=== PATIENT | female | born 1960 | race Caucasian/White ===

== ENCOUNTER 2017-09-08 19:50 | Inpatient (IN) | payer MEDICARE, BC, MEDICAID ==
[~2017-09-08] VITALS: Ht 162.6 cm; Wt 52.5 kg
[~2017-09-08 19:50] MED LIST: DIVA500T52 PO; LURA40 PO
[2017-09-08 20:14] LABS: BASOPHILS % (AUTO) 1.1 % (0.0-2.0); EOSINOPHILS % (AUTO) 1.6 % (1.0-6.0); HEMATOCRIT 36.6 % (36-46); HEMOGLOBIN 12.9 g/dL (12.0-16.0); LYMPHOCYTES # (AUTO) 2.7 K/uL (1.0-4.8); LYMPHOCYTES % (AUTO) 28.7 % (22.0-44.0); MEAN CORPUSCULAR HEMOGLOBIN 32.8 pg (26.0-34.0); MEAN CORPUSCULAR HGB CONC 35.1 G/dL (31.0-37.0); MEAN CORPUSCULAR VOLUME 93 fL (80-100); MONOCYTES # (AUTO) 0.7 K/uL (0.1-1.0); NEUTROPHILS # (AUTO) 5.9 K/uL (1.8-7.7); NEUTROPHILS % (AUTO) 61.6 % (40.0-70.0); PLATELET COUNT (AUTO) 351 K/uL (150-450); RED BLOOD CELL COUNT(AUTO) 3.92 MIL/uL (4.00-5.20); RED CELL DISTRIBUTION WIDTH 12.8 % (11.5-14.5)
[2017-09-08] MEDS ORDERED: HALOPERIDOL 5 MG TABLET PO ONE ×2 (20:15→23:00)
[2017-09-08] MEDS ORDERED: LORazepam 2 MG TABLET PO ONE (20:15)
[2017-09-08] MEDS ORDERED: DiphenhydrAMINE HCL 25 MG CAPSULE PO ONE (20:15)
[2017-09-08 20:40] LABS: ANION GAP 11 mmol/L (8-16); CALCIUM, TOTAL 9.2 mg/dL (8.8-10.5); CARBON DIOXIDE 27 mmol/L (22-29); CHLORIDE 102 mmol/L (98-107); GLOMERULAR FILTR. RATE CALC > 60 mL/min (>60); GLUCOSE,RANDOM 123 mg/dL (70-110); POTASSIUM 3.4 mmol/L (3.5-5.1); SODIUM SERUM 140 mmol/L (136-145); UREA NITROGEN, BLOOD 24 mg/dL (7-18)
[2017-09-08 20:49] LABS: ALANINE AMINOTRANSFERASE 40 U/L (12-78); ALBUMIN 4.2 g/dL (3.4-5.0); ALKALINE PHOSPHATASE 94 U/L (46-116); ASPARTATE AMINOTRANSFERASE 42 U/L (15-37); TOTAL PROTEIN, SERUM 7.4 g/dL (6.4-8.2)
[2017-09-08 21:58] LABS: VALPROIC ACID < 3 mcg/mL (50-100)
[2017-09-08] MEDS ORDERED: LORazepam 1 MG TABLET PO ONE (23:00)
[2017-09-08 23:38] LABS: AMPHET/METH SCREEN,URINE NEGATIVE (NEGATIVE); BARBITURATE SCREEN, URINE NEGATIVE (NEGATIVE); BENZODIAZEPINES SCREEN,URINE NEGATIVE (NEGATIVE); CANNABINOID SCREEN,URINE NEGATIVE (NEGATIVE); COCAINE SCREEN,URINE NEGATIVE (NEGATIVE); METHADONE SCREEN, URINE NEGATIVE (NEGATIVE); OPIATE SCREEN,URINE NEGATIVE (NEGATIVE)
[2017-09-08 23:42] LABS: PHENCYCLIDINE SCREEN,URINE NEGATIVE (NEGATIVE)
[2017-09-09 01:12] LABS: CHOL/HDL RATIO 1.8 (3.9-5.7); CHOLESTEROL 155 mg/dL (131-200); HDL CHOLESTEROL 87 mg/dL (40-60); LDL CHOL (CALC.) 62 mg/dL (0-130); TRIGLYCERIDES 32 mg/dL (15-150)
[2017-09-09] MEDS: LORazepam 2 MG TABLET PO PRN (09:45)
[2017-09-09 15:02] VITALS: BP 91/53
[2017-09-09] MEDS ORDERED: INFLUENZA VIRUS VACCINE QVS 2017-18 (3YR+)/PF 60 MCG/0.5 ML SYRINGE IM ONE (15:30)
[2017-09-09] MEDS ORDERED: POTASSIUM CHLORIDE 20 MEQ ER TABLET PO ONE (15:45)
[2017-09-09] MEDS ORDERED: IBUPROFEN 400 MG TABLET PO PRN (16:15)
[2017-09-09 17:22] VITALS: BP 106/47
[2017-09-10 06:01] VITALS: BP 139/98
[2017-09-10 07:12] LABS: HEMOGLOBIN A1C 5.3 % (4.5-6.2)
[2017-09-10 07:19] LABS: THYROID STIMULATING HORMONE 2.15 uIU/mL (0.36-3.74)
[2017-09-10 08:00] VITALS: BP 113/81
[2017-09-10] MEDS: HALOPERIDOL 5 MG TABLET PO PRN (08:35)
[2017-09-10] MEDS: LORazepam 2 MG TABLET PO PRN (08:35)
[2017-09-10] MEDS: NICOTINE 14 MG/24 HOUR PATCH TD SCH (08:36)
[2017-09-10] MEDS: DIVALPROEX SODIUM 500 MG ER TABLET PO SCH ×2 (11:17→16:24)
[2017-09-10] MEDS: RisperiDONE 2 MG TABLET PO SCH ×2 (11:17→16:24)
[2017-09-10] MEDS: ACETAMINOPHEN 325 MG TABLET PO PRN (22:24)
[2017-09-11] MEDS: NICOTINE 14 MG/24 HOUR PATCH TD SCH (09:06)
[2017-09-11] MEDS: RisperiDONE 2 MG TABLET PO SCH ×2 (09:06→15:55)
[2017-09-11] MEDS: DIVALPROEX SODIUM 500 MG ER TABLET PO SCH ×2 (09:06→15:55)
[2017-09-11 17:00] VITALS: BP 102/67
[2017-09-12 05:46] VITALS: BP 114/79
[2017-09-12] MEDS: NICOTINE 14 MG/24 HOUR PATCH TD SCH (09:00)
[2017-09-12] MEDS: HALOPERIDOL 5 MG TABLET PO PRN (10:08)
[2017-09-12] MEDS: DIVALPROEX SODIUM 500 MG ER TABLET PO SCH ×2 (10:08→16:12)
[2017-09-12] MEDS: RisperiDONE 2 MG TABLET PO SCH ×2 (10:08→16:12)
[2017-09-12 16:46] VITALS: BP 115/78
[2017-09-12] MEDS: ZOLPIDEM TARTRATE 10 MG TABLET PO PRN (22:49)
[2017-09-13 04:47] VITALS: BP 121/58
[2017-09-13 08:00] VITALS: BP 139/91
[2017-09-13] MEDS: DIVALPROEX SODIUM 500 MG ER TABLET PO SCH ×2 (09:01→16:09)
[2017-09-13] MEDS: RisperiDONE 2 MG TABLET PO SCH ×2 (09:01→16:09)
[2017-09-13] MEDS: NICOTINE 14 MG/24 HOUR PATCH TD SCH (09:08)
[2017-09-13] MEDS: HALOPERIDOL 5 MG TABLET PO PRN (09:08)
[2017-09-13] MEDS: LORazepam 2 MG TABLET PO PRN (16:13)
[2017-09-13 17:06] VITALS: BP 125/79
[2017-09-14 04:46] VITALS: BP 120/75
[2017-09-14 08:15] VITALS: BP 101/67
[2017-09-14] MEDS: RisperiDONE 2 MG TABLET PO SCH ×2 (08:59→16:55)
[2017-09-14] MEDS: DIVALPROEX SODIUM 500 MG ER TABLET PO SCH ×2 (08:59→16:56)
[2017-09-14] MEDS: NICOTINE 14 MG/24 HOUR PATCH TD SCH (09:03)
[2017-09-14 16:21] VITALS: BP 117/74
[2017-09-15] MEDS: ZOLPIDEM TARTRATE 10 MG TABLET PO PRN ×2 (01:15→21:03)
[2017-09-15] MEDS: HALOPERIDOL 5 MG TABLET PO PRN (01:15)
[2017-09-15 03:00] VITALS: BP 120/73
[2017-09-15 08:15] VITALS: BP 111/61
[2017-09-15] MEDS: RisperiDONE 2 MG TABLET PO SCH ×2 (09:02→17:49)
[2017-09-15] MEDS: DIVALPROEX SODIUM 500 MG ER TABLET PO SCH ×2 (09:02→17:49)
[2017-09-15] MEDS: NICOTINE 14 MG/24 HOUR PATCH TD SCH (09:06)
[2017-09-15 19:25] VITALS: BP 118/75
[2017-09-16 06:31] VITALS: BP 120/86
[2017-09-16] MEDS: NICOTINE 14 MG/24 HOUR PATCH TD SCH (09:01)
[2017-09-16] MEDS: RisperiDONE 2 MG TABLET PO SCH (09:01)
[2017-09-16] MEDS: DIVALPROEX SODIUM 500 MG ER TABLET PO SCH ×2 (09:01→16:51)
[2017-09-16 09:05] VITALS: BP 120/87
[2017-09-16] MEDS: RisperiDONE 3 MG TABLET PO SCH (16:51)
[2017-09-16 17:50] VITALS: BP 112/72
[2017-09-17 08:30] VITALS: BP 104/72
[2017-09-17] MEDS: DIVALPROEX SODIUM 500 MG ER TABLET PO SCH ×2 (08:45→16:06)
[2017-09-17] MEDS: RisperiDONE 3 MG TABLET PO SCH ×2 (08:45→16:06)
[2017-09-17] MEDS: NICOTINE 14 MG/24 HOUR PATCH TD SCH (08:45)
[2017-09-17] MEDS ORDERED: FLUTICASONE PROPIONATE 50 MCG/SPRAY 16 GM NASAL SPRAY NASAL PRN (15:00)
[2017-09-17 19:55] VITALS: BP 126/77
[2017-09-18 02:22] VITALS: BP 109/72
[2017-09-18 08:30] VITALS: BP 121/61
[2017-09-18] MEDS: DIVALPROEX SODIUM 500 MG ER TABLET PO SCH ×2 (08:54→16:11)
[2017-09-18] MEDS: RisperiDONE 3 MG TABLET PO SCH ×2 (08:54→16:11)
[2017-09-18] MEDS: NICOTINE 14 MG/24 HOUR PATCH TD SCH (08:54)
[2017-09-18 16:59] VITALS: BP 119/71
[2017-09-19 03:14] VITALS: BP 119/77
[2017-09-19 08:00] VITALS: BP 130/81
[2017-09-19] MEDS: RisperiDONE 3 MG TABLET PO SCH ×2 (08:12→16:48)
[2017-09-19] MEDS: DIVALPROEX SODIUM 500 MG ER TABLET PO SCH ×2 (08:12→16:47)
[2017-09-19] MEDS: NICOTINE 14 MG/24 HOUR PATCH TD SCH (08:13)
[2017-09-19 16:43] VITALS: BP 131/79
[2017-09-19] MEDS: ACETAMINOPHEN 325 MG TABLET PO PRN (16:46)
[2017-09-20 01:37] VITALS: BP 141/88
[2017-09-20 08:00] VITALS: BP 139/89
[2017-09-20] MEDS: NICOTINE 14 MG/24 HOUR PATCH TD SCH (08:45)
[2017-09-20] MEDS: RisperiDONE 3 MG TABLET PO SCH ×2 (08:46→16:24)
[2017-09-20] MEDS: DIVALPROEX SODIUM 500 MG ER TABLET PO SCH ×2 (08:46→16:24)
[2017-09-20 17:14] VITALS: BP 133/72
[2017-09-21 01:59] VITALS: BP 118/73
[2017-09-21] MEDS: ZOLPIDEM TARTRATE 10 MG TABLET PO PRN ×2 (01:59→21:41)
[2017-09-21 08:00] VITALS: BP 104/63
[2017-09-21] MEDS: NICOTINE 14 MG/24 HOUR PATCH TD SCH (08:24)
[2017-09-21] MEDS: RisperiDONE 3 MG TABLET PO SCH ×2 (08:25→16:34)
[2017-09-21] MEDS: DIVALPROEX SODIUM 500 MG ER TABLET PO SCH ×2 (08:25→16:33)
[2017-09-21 16:53] VITALS: BP 128/67
[2017-09-21] MEDS: LORazepam 2 MG TABLET PO PRN (21:41)
[2017-09-22 06:39] VITALS: BP 108/77
[2017-09-22 08:16] VITALS: BP 116/71
[2017-09-22] MEDS: DIVALPROEX SODIUM 500 MG ER TABLET PO SCH ×2 (08:49→16:44)
[2017-09-22] MEDS: RisperiDONE 3 MG TABLET PO SCH ×2 (08:49→16:44)
[2017-09-22] MEDS: NICOTINE 14 MG/24 HOUR PATCH TD SCH (08:52)
[2017-09-22 17:14] VITALS: BP 126/72
[2017-09-22 18:13] LABS: APPEARANCE,URINE CLOUDY (CLEAR); BILIRUBIN,URINE NEGATIVE (NEGATIVE); GLUCOSE, URINE (UA) NEGATIVE (NEGATIVE); KETONES,URINE NEGATIVE (NEGATIVE); LEUKOCYTE ESTERASE ,URINE NEGATIVE (NEGATIVE); NITRATE,URINE NEGATIVE (NEGATIVE); OCCULT BLOOD,URINE NEGATIVE (NEGATIVE); PH,URINE 7.5 (5.0-8.0); PROTEIN,URINE NEGATIVE (NEGATIVE); UROBILINOGEN,URINE 0.2 mg/dL (<=1.0)
[2017-09-23 00:44] VITALS: BP 108/74
[2017-09-23] MEDS: ZOLPIDEM TARTRATE 10 MG TABLET PO PRN (00:44)
[2017-09-23 08:05] VITALS: BP 106/72
[2017-09-23] MEDS: RisperiDONE 3 MG TABLET PO SCH ×2 (08:27→16:21)
[2017-09-23] MEDS: DIVALPROEX SODIUM 500 MG ER TABLET PO SCH ×2 (08:27→16:21)
[2017-09-23] MEDS: NICOTINE 14 MG/24 HOUR PATCH TD SCH (08:28)
[2017-09-23] MEDS ORDERED: RISP3 PO (14:06)
[2017-09-23 20:41] VITALS: BP 103/67
[2017-09-24 08:05] VITALS: BP 127/86
[2017-09-24] MEDS: DIVALPROEX SODIUM 500 MG ER TABLET PO SCH (09:22)
[2017-09-24] MEDS: RisperiDONE 3 MG TABLET PO SCH (09:22)
[2017-09-24] MEDS: NICOTINE 14 MG/24 HOUR PATCH TD SCH (09:22)
== END 2017-09-24 09:15 | disposition home or self-care (01) | DRG 885 ==
LOC: EMS 19:52 → 3EX 09-09 12:18
PROC: 3E0234Z Introduction of Serum, Toxoid and Vaccine into Muscle, Percutaneous Approach (ICD-10-PCS; principal; 2017-09-09)
DX: F20.0 Paranoid schizophrenia (principal); F29 Unspecified psychosis not due to a substance or known physiological condition; F10.10 Alcohol abuse, uncomplicated; J30.9 Allergic rhinitis, unspecified; K59.00 Constipation, unspecified; R73.9 Hyperglycemia, unspecified; R00.0 Tachycardia, unspecified; M19.90 Unspecified osteoarthritis, unspecified site; F17.210 Nicotine dependence, cigarettes, uncomplicated; Z79.899 Other long term (current) drug therapy; Z23 Encounter for immunization
CPT/HCPCS: 83036; 84132; 84443; 99285; G0480